=== PATIENT | female | born 1985 | race Caucasian/White ===

== ENCOUNTER 2017-09-02 06:32 | Day surgery (SDC) | payer OTHER ==
[2017-09-02] MEDS ORDERED: Propofol 10 mg/ml Inj (20 ML) ONE (07:31)
[2017-09-02] MEDS ORDERED: cefOXitin IV 1 gm in Dextrose 1 GM/50 ML BAG IVPB ONE (07:39)
[2017-09-02] MEDS ORDERED: Oxytocin 20 units in LR 0 ML IV ONE (07:39)
[2017-09-02] MEDS ORDERED: HYDROmorphone 1 mg/ml ISec IVP PRN (08:06)
[2017-09-02] MEDS ORDERED: Dexamethasone 4 mg/1 ml IVP PRN (09:00)
[2017-09-02 09:26] VITALS: O2SAT 100
[2017-09-02 11:33] VITALS: BP 100/63; PULSE 77; RESP 15; TEMP 98.1
--- NOTE | 2017-09-02 18:23 | PCM.SURG1 ---
Surgeon's Initial Post Op Note - Surgeon's Notes Surgeon: dr bolaños Dredge Boat Engineer: none Type of Anesthesia: General LMA Anesthesia Administered By: dr harvey Pre-Operative Diagnosis: 32 yr at 8weekds missed Operative Findings: see the op reort Post-Operative Diagnosis: same Operation Performed: suction d&c Specimen/Specimens Removed: poc. chromosomes Estimated Blood Loss: EBL {In ML}: 20 Blood Products Given: N/A Drains Used: No Drains Post-Op Condition: Good Date of Surgery/Procedure: 09/02/17 Time of Surgery/Procedure: 08:00
--- NOTE | 2017-09-03 04:55 | OP ---
PROCEDURE DATE: 09/02/2017 PREOPERATIVE DIAGNOSIS: A 32 years old gravid 2, para 1 at 8 weeks and missed . POSTOPERATIVE DIAGNOSIS: A 32 years old gravid 2, para 1 at 8 weeks and missed . SURGEON: Guille Royal MD DOOR PERSON: None. TYPE OF ANESTHESIA: General. ANESTHESIOLOGIST: Henry Elam MD PROCEDURE: D and C. COMPLICATIONS: None. ESTIMATED BLOOD LOSS: 20 mL. DESCRIPTION OF PROCEDURE: After informed consent was obtained, the patient was brought to the operating room, placed on the table where general anesthesia was given. When anesthesia was found to be sufficient, she was prepped and draped in normal sterile fashion. Examination found uterus to be 8 week size. No pelvic or adnexal masses. Anterior lip of the cervix was grasped with a tenaculum. Gentle dilatation of the cervix was done. A 6-Fijian flexible and then 7-Fijian flexible catheter was used for suction. Products out. Then the sharp curettage was done, and the Bovie dissection was done again until the bleeding sensation was found. After that, part of the tissue was sent for chromosomes. Tenaculum was taken out of the anterior lip of the cervix. The patient tolerated the procedure well. Lap, sponge, and instrument counts were correct x2. We will follow up in the doctor's office in two weeks. Guille Royal MD
== END 2017-09-02 10:44 | disposition home or self-care (01) ==
LOC: C.SDS 06:32
PROVIDERS: ATTEND Obstetrics & Gynecology
DX: O02.1 Missed abortion (principal)
CPT/HCPCS: 59820; 88233; 88262; 88305; J0694; J1885; J2001; J2405; J2704; J3010